=== PATIENT | female | born 1980 | race Caucasian/White ===

== ENCOUNTER 2019-05-13 13:18 | Emergency (ER) | payer MEDICAID ==
--- NOTE | 2019-05-13 13:35 | ER Document Report ---
HPI - HPI Patient complains to provider of: right side neck pain Time Seen by Provider: 05/13/19 13:23 Onset: Other - 4 days Onset/Duration: Persistent Context: This 39-year-old female presents emergency department with right-sided neck pain. Reports she is had the neck pain for 4 days. She went to the urgent care and strep test was done it was negative but they advised her to come to the emergency department for evaluation. Patient reports she has had this neck pain 4 times in the past month and a half. She reports the pain will come and go. This time is lasted for days. She has been evaluated by her primary care provider Dr. Chilel. He has done blood work and found that she had high cholesterol. She reports her thyroid was normal. Dr Chilel also did blood work for cat scratch fever. That was negative. Patient denies trauma. She reports she is also seeing a film numberer for palpitations. Patient reports the area on the right side of her neck is tender to touch. She thought she felt some lymph nodes but no lymph nodes can be appreciated. She denies fever vomiting diarrhea. She is eating and drinking as normal. Patient has clear voice. Associated Symptoms: None Exacerbated by: Movement Relieved by: Denies Similar symptoms previously: Yes Recently seen / treated by doctor: Yes - REPRODUCTIVE Reproductive: DENIES: : Past Medical History - General Information source: Patient - Social History Smoking Status: Current Every Day Smoker Cigarette use (# per day): Yes Frequency of alcohol use: None Drug Abuse: None Family History: None Patient has suicidal ideation: No Patient has homicidal ideation: No - Past Medical History Cardiac Medical History: Reports: Hx Hypercholesterolemia Surgical Hx: Negative - Immunizations Immunizations up to date: Yes Hx Diphtheria, Pertussis, Tetanus Vaccination: Yes Vertical Provider Document - CONSTITUTIONAL Agree With Documented VS: Yes Exam Limitations: No Limitations General Appearance: WD/WN, No Apparent Distress - INFECTION CONTROL TRAVEL OUTSIDE OF THE [place] IN LAST 30 DAYS: No - HEENT HEENT: Atraumatic, Normal ENT Exam, Normocephalic, PERRLA. negative: Conjuctival Injection, Pharyngeal Exudate, Pharyngeal Erythema - good airway, no peritonsillar abscess, no exudate, clear voice no trismus no Daniel's - NECK Neck: Normal Inspection, Supple. negative: Lymphadenopathy-Left, Lymphadenopathy-Right - RESPIRATORY Respiratory: Breath Sounds Normal, No Respiratory Distress - CARDIOVASCULAR Cardiovascular: Regular Rate, Regular Rhythm - GI/ABDOMEN Gastrointestinal: Abdomen Soft, Abdomen Non-Tender - BACK Back: Normal Inspection. negative: CVA Tenderness-Right, CVA Tenderness-Left - MUSCULOSKELETAL/EXTREMETIES Musculoskeletal/Extremeties: ALBERTINA OSUNA - NEURO Level of Consciousness: Awake, Alert, Appropriate Motor/Sensory: No Motor Deficit - DERM Integumentary: Warm, Dry Course - Re-evaluation Re-evalutation: 05/13/19 13:41 This 39-year-old female presents with complaints of right-sided neck pain. No trauma. Good airway. Her strep test was negative at the urgent care. No tonsillar exudate noted no peritonsillar abscess. We discussed possible muscular pain. Patient reports she is taking Motrin without relief of symptoms. Patient was instructed on the importance of follow-up with her primary care provider since he is already been evaluating her neck pain. She verbalized understanding. Dictation of this chart was performed using voice recognition software; t herefore, there may be some unintended grammatical errors. Discharge - Discharge Clinical Impression: Neck pain on right side Condition: Stable Disposition: HOME, SELF-CARE Additional Instructions: *You have been evaluated for right sided neck pain *Apply cool packs as indicated for comfort *take tylenol or motrin for pain as indicated *follow up with Dr Chilel tomorrow for recheck *Return to ED for worsening condition, changes, needs
[2019-05-13 13:36] VITALS: BP 123/75
== END 2019-05-13 13:35 | disposition home or self-care (01) ==
LOC: ER 13:18
DX: M54.2 Cervicalgia (principal); F17.210 Nicotine dependence, cigarettes, uncomplicated
CPT/HCPCS: 99283

== ENCOUNTER → 2019-10-30 | Outpatient (CLI) | payer MEDICAID ==
[2019-10-30 13:34] LABS: A TYPE INFLUENZA AG NEGATIVE (NEGATIVE); B INFLUENZA AG NEGATIVE (NEGATIVE)
== END ==
LOC: RDC 12:28
PROVIDERS: ATTEND Nurse Practitioner Family
DX: Z20.828 Contact with and (suspected) exposure to other viral communicable diseases (principal)
CPT/HCPCS: 36415; 87070; 87635; 87804; 87880